=== PATIENT | male | born 1955 | race Caucasian/White ===

== ENCOUNTER 2016-11-30 14:01 | Day surgery (SDC) | payer OTHER ==
[~2016-11-30] VITALS: Ht 190.5 cm; Wt 127.5 kg
[~2016-11-30 14:01] MED LIST: ALLO300T PO; ASPI-496 PO; CEFAZOLIN 1,000 MG ONE; DEXAMETHASONE 4 MG/ML, 1ML ONE; EPHEDRINE 50 MG/ML, 1ML ONE; FENO45CA2 PO; FLUO15CR2 TP; LEVO75TA PO; LISI-170 PO; METF10002 PO; NIAC100035 PO; ONDANSETRON 2MG/ML, 2ML ONE; PHENYLEPHRINE 10 MG/ML ONE; PROPOFOL 10 MG/ML, 20ML ONE; ROCURONIUM 10 MG/ML ONE; ROSU10TA PO; SUCCINYLCHOLINE 20 MG/ML, 10ML ONE
[2016-11-30] MEDS ORDERED: LACTATED RINGERS 1,000 ML IV SCH (14:19)
[2016-11-30 14:45] VITALS: BP 150/91
[2016-11-30] MEDS ORDERED: MIDAZOLAM 1 MG/ML, 2ML ONE (15:51)
[2016-11-30] MEDS ORDERED: FENTANYL PF 250 MCG/5ML ONE (15:52)
[2016-11-30] MEDS ORDERED: MEPERIDINE/PF 25MG/0.5ML IVPush PRN (17:00)
[2016-11-30] MEDS ORDERED: ONDANSETRON 2MG/ML, 2ML IVPush PRN (17:00)
[2016-11-30] MEDS ORDERED: hydrALAzine 20 MG/ML, 1ML IV PRN (17:00)
[2016-11-30] MEDS ORDERED: ACETAMINOPHEN 325 MG TABLET PO PRN (17:00)
[2016-11-30] MEDS ORDERED: OXYcodone 5 MG/5 ML ORAL.SOL UDC PO PRN (17:00)
[2016-11-30] MEDS ORDERED: MIDAZOLAM 1 MG/ML, 2ML IV PRN (17:00)
[2016-11-30] MEDS ORDERED: FENTANYL PF 100 MCG/2ML IV PRN (17:00)
[2016-11-30] MEDS ORDERED: METOCLOPRAMIDE 5 MG/ML, 2ML IV PRN (17:00)
[2016-11-30] MEDS ORDERED: PROMETHAZINE 25 MG/ML, 1ML IV PRN (17:00)
[2016-11-30] MEDS ORDERED: HYDROmorphone 1 MG/ML, 1ML IV PRN (17:00)
[2016-11-30] MEDS ORDERED: LABETALOL 5MG/ML, 20ML IV PRN (17:00)
[2016-11-30] MEDS ORDERED: OXYcodone 5 MG/5 ML ORAL.SOL UDC ONE (18:02)
== END 2016-11-30 20:05 | disposition home or self-care (01) ==
LOC: OR 14:01 → MERGE 16:00 → OR 20:05
PROVIDERS: ATTEND Urology
DX: N20.0 Calculus of kidney (principal); I10 Essential (primary) hypertension; E11.9 Type 2 diabetes mellitus without complications; E03.9 Hypothyroidism, unspecified; E66.9 Obesity, unspecified; Z68.35 Body mass index [BMI] 35.0-35.9, adult; E78.5 Hyperlipidemia, unspecified; M10.9 Gout, unspecified; M19.90 Unspecified osteoarthritis, unspecified site; N39.0 Urinary tract infection, site not specified; Z72.89 Other problems related to lifestyle; Z87.891 Personal history of nicotine dependence; Z82.49 Family history of ischemic heart disease and other diseases of the circulatory system
CPT/HCPCS: 52356; 74000; 76000; 82962; 93005; C1758; C2617; J0330; J0690; J1100; J2250; J2370; J2405; J2704; J3010; J7120; 76001